=== PATIENT | male | born 1990 | race Caucasian/White ===

== ENCOUNTER 2016-09-09 18:12 | Emergency (ER) | payer OTHER ==
[~2016-09-09] VITALS: Ht 180.3 cm; Wt 83.9 kg
[2016-09-09 18:12] VITALS: BP 134/60
[2016-09-09] MEDS ORDERED: BACITRACIN OINT 30GM TOP ONE ×2 (19:30)
[2016-09-09] MEDS ORDERED: CODE30TA3 PO (19:34)
== END 2016-09-09 20:27 | disposition home or self-care (01) ==
LOC: M ED 18:43
DX: T23.391A Burn of third degree of multiple sites of right wrist and hand, initial encounter (principal); T31.0 Burns involving less than 10% of body surface; Y92.9 Unspecified place or not applicable; Y93.89 Activity, other specified; F17.200 Nicotine dependence, unspecified, uncomplicated

== ENCOUNTER 2017-07-29 10:51 | Emergency (ER) | payer OTHER | END 2017-07-29 14:44 | disposition home or self-care (01) | LOC: M ED 10:51 | DX: S29.001A Unspecified injury of muscle and tendon of front wall of thorax, initial encounter (principal); X58.XXXA Exposure to other specified factors, initial encounter; Y93.A5 Activity, obstacle course; Y92.84 Military training ground as the place of occurrence of the external cause; F17.200 Nicotine dependence, unspecified, uncomplicated | CPT/HCPCS: 71046 ==

== ENCOUNTER 2017-09-14 02:37 | Emergency (ER) | payer OTHER | END 2017-09-14 03:58 | disposition left against medical advice (07) | LOC: M ED 02:37 | DX: S09.90XA Unspecified injury of head, initial encounter (principal); Y04.8XXA Assault by other bodily force, initial encounter; Y92.9 Unspecified place or not applicable; Y93.9 Activity, unspecified; Y99.9 Unspecified external cause status; Z53.21 Procedure and treatment not carried out due to patient leaving prior to being seen by health care provider ==

== ENCOUNTER 2018-09-14 12:34 | Emergency (ER) | payer OTHER ==
[~2018-09-14] VITALS: Ht 185.4 cm; Wt 81.8 kg
[2018-09-14 12:34] VITALS: BP 164/83
[~2018-09-14 12:34] MED LIST: ACET300T47 PO; IBUP-1022 PO
[2018-09-14] MEDS ORDERED: CHLO1.4S2 MT (13:10)
[2018-09-14 13:45] LABS: MONO SCRN NEGATIVE (NEGATIVE)
== END 2018-09-14 13:28 | disposition home or self-care (01) ==
LOC: M ED 12:34
DX: J06.9 Acute upper respiratory infection, unspecified (principal); J04.0 Acute laryngitis; Z72.0 Tobacco use

== ENCOUNTER 2018-10-06 23:15 | Emergency (ER) | payer OTHER ==
[~2018-10-06] VITALS: Ht 182.9 cm; Wt 85.0 kg
[~2018-10-06 23:15] MED LIST changes: +CHLO1.4S2 MT
[2018-10-07] MEDS ORDERED: PRED20TA PO (05:23)
[2018-10-07] MEDS ORDERED: KETOROLAC 30 MG/ML VIAL (J1885) IV ONE (05:30)
[2018-10-07] MEDS ORDERED: IPRATROPIUM 0.5MG/ALBUTEROL 2.5MG INH SOL UD 3ML (DUONEB)(J7620) NEB ONE (05:30)
[2018-10-07] MEDS ORDERED: dexameTHASONE 20 MG/5 ML VIAL (J1100) IV ONE (05:30)
[2018-10-07 06:28] VITALS: BP 138/85
--- NOTE | 2018-10-07 09:39 | REP ---
Clinical: Cough . Comparison: 07/29/2017 . Findings: The mediastinum and cardiac silhouette are stable and within normal limits for portable technique. The lung coulter are clear without acute consolidation, effusion, or pneumothorax. Skeletal structures are intact. Impression: No acute cardiopulmonary process appreciated. Electronically Signed by Demetrius Linares MD 10/07/2018 09:31 A
== END 2018-10-07 06:30 | disposition home or self-care (01) ==
LOC: M ED 23:15
DX: J20.9 Acute bronchitis, unspecified (principal); S39.012A Strain of muscle, fascia and tendon of lower back, initial encounter; X58.XXXA Exposure to other specified factors, initial encounter; Y92.9 Unspecified place or not applicable; Y93.89 Activity, other specified; Y99.9 Unspecified external cause status; Z72.0 Tobacco use
CPT/HCPCS: 71045; 94640; 96374; 96375; 99284; J1100; J1885